=== PATIENT | male | born 1990 | race Two or more races ===

== ENCOUNTER 2023-10-11 10:08 | Outpatient (AMB) | payer OTHER, SELFPAY ==
--- NOTE | 2023-10-11 10:05 | AM.OFFWIN_ITS ---
Intake Vital Signs 10/11/23 10:11 Height 5 ft 8 in Weight 171 lb BMI 26.0 BP 130/84 Blood Pressure Location Lt brachial Position Sitting Pulse 71 Pulse Source Pulse Oximeter Temp 97.5 F Temp Source Temporal Artery Scan Pulse Oximetry (%) 98 Oxygen Delivery Method Room Air Intake Visit Reasons: [employer] sore throat , cough Intake Note: pt is here today for sore throat cough started 3 weeks ago Patient Tobacco Use Status: Never used Tobacco Allergies No Known Allergies Allergy (Verified 10/11/23 10:13) Do you need a note to return to daycare/school/sports/work: No HPI [employer] sore throat , cough HPI Details This is a 33 year old male patient who presents today with a 2 week history of productive cough, nasal congestion, and sore throat. Denies any fever, shortness of breath, or GI symptoms. Reports son had rhinovirus last week. He has been taking Ibuprofen which is somewhat helpful. Reports cough is worse at night. [facility] Social History Patient Tobacco Use Status: Never used Tobacco Review of Systems Const All systems reviewed & are unremarkable except as noted in HPI and below Physical Exam Vital Signs: Last Vital Signs Temp 97.5 F 10/11/23 10:11 Pulse 71 10/11/23 10:11 BP 130/84 10/11/23 10:11 Pulse Ox 98 10/11/23 10:11 Oxygen Delivery Method Room Air 10/11/23 10:11 BMI result Body Mass Index 26.0 Const General: cooperative and healthy appearing HEENT Head: Yes normal to inspection Ears: hearing grossly normal bilaterally Face and sinus: Yes normal facial exam Mouth: Normal oral and palatal mucosa present Throat: Yes posterior oropharynx normal (mild erythema) Neck Neck: Yes no lymphadenopathy Resp Effort & Inspection: normal respiratory effort Auscultation: clear to auscultation bilaterally Cardio Rate: regular rate Rhythm: regular rhythm Skin General skin exam: no rashes or lesions noted Extrem General: Yes capillary refill normal and Yes no clubbing, cyanosis or edema Psych Appearance: grossly normal Mental Status: mental status grossly normal Speech and movement: Normal speech and movement present Results AMB Rapid Strep AMB Rapid Strep Negative Last Edit by Mikey Keyes MA on 10/11/23 10:23 Assessment & Plan Assessment & Plan (1) Upper respiratory tract infection: Code(s): J06.9 - Acute upper respiratory infection, unspecified Qualifiers: URI type: unspecified viral URI Qualified Code(s): J06.9 - Acute upper respiratory infection, unspecified Plan: Symptoms consistent with upper respiratory virus. Rapid strep negative. Viral swab for Covid/Flu/RSV obtained and patient aware he will be notified of results once these are available. I will prescribe Benzonatate for the cough. We reviewed indications and use of this. He can also use an otc cold/flu medication for symptom management, in addition to conservative measures with hydration, healthy food/vitamin intake. If he does not improve with time and conservative treatment, or if symptoms worsen, he can return to the clinic of PCP for further evaluation. He verbalizes understanding and agrees to plan. Orders: Orders SARS-CoV2/FLU/RSV Today J06.9 - Acute upper respiratory infection, unspecified Medications: New benzonatate 100 mg PO BID 7 days PRN 14 caps 0RF cough R05.9 - Cough, unspecified Coding Level of Care Code Est Pt Level 4 (86603) Diagnoses Viral upper respiratory tract infection J06.9 URI type: unspecified viral URI
[2023-10-11 10:11] VITALS: BP 130/84; PULSE 71; TEMP 36.4; O2SAT 98; BMI 26.0
== END 2023-10-11 10:40 | disposition home or self-care (01) ==
PROVIDERS: Visit Provider Nurse Practitioner Family
DX: J06.9 Acute upper respiratory infection, unspecified (principal)
CPT/HCPCS: 99214

== ENCOUNTER 2023-10-11 10:22 | Outpatient (REF) | payer OTHER, SELFPAY ==
[2023-10-11 14:16] LABS: Influenza A PCR NEGATIVE (Negative); Influenza B PCR NEGATIVE (Negative); Resp Syncy Virus RNA Qual PCR NEGATIVE (Negative); SARS COV2 PCR INHOUSE NEGATIVE (Negative)
== END 2023-10-11 10:23 | disposition home or self-care (01) ==
LOC: HO.LAB 10:22
PROVIDERS: Visit Provider Nurse Practitioner Family
DX: J06.9 Acute upper respiratory infection, unspecified (principal)
CPT/HCPCS: 0241U